=== PATIENT | female | born 2005 | race Caucasian/White ===

== ENCOUNTER 2025-03-26 13:10 | Inpatient (IN) | payer OTHER, SELFPAY ==
[2025-03-26] VITALS (11 sets, daily range): BP systolic 113–149; BP diastolic 48–73; PULSE 79–114; RESP 14–24; TEMP 36.4–37.1; O2SAT 96–100; BMI 31.4
--- NOTE | ~2025-03-26 | XR_ITS ---
XR surgery orthopedic INDICATION: ORIF COMPARISON: None Cumulative air kerma: 1.4479 mGy Fluoroscopy time:29.4 seconds FINDINGS: Fluoroscopy provided for plate and screw fixation of the distal fibular fracture and screw fixation of the medial malleolus. Sequential spot intraoperative fluoroscopic images demonstrate lateral plate and screw fixation of distal fibular fracture. There are surgical screws through the medial malleolus.. IMPRESSION: Please see operative report for further details. Reviewed, dictated and finalized at location [facility] [employer]
--- NOTE | ~2025-03-26 | XR_ITS ---
XR ankle RT min 3V 03/26/2025 13:34 Indication: Status post fall. Ankle pain. Procedure: 3 views right ankle Comparison: No prior studies for comparison. Findings: There are fractures of the distal fibular diaphysis with lateral displacement, medial malleolus with displacement as well as the posterior malleolus. There is moderate diffuse ankle swelling. No foreign bodies. Impression: 1: Displaced trimalleolar fractures. Reviewed, dictated and finalized at location I. R COACH DRIVER Impression: 1: Displaced trimalleolar fractures.
--- NOTE | 2025-03-26 13:30 | PC.NURSE ---
This RN asked TREY Cueva for pain medicine for pt. No new orders at this time.
--- NOTE | 2025-03-26 15:09 | ED_ITS ---
HPI - General Adult General Chief complaint: Fall <SABI Butler - Last Filed: 03/26/25 19:28> Stated complaint: fall, R ankle pain <SABI Butler - Last Filed: 03/26/25 19:28> Time Seen by Provider: 03/26/25 13:27 <SABI Butler - Last Filed: 03/26/25 19:28> History of Present Illness HPI narrative: 19-year-old female presenting with right ankle injury after slipping on ice. Patient's right ankle and foot is significantly swollen without an obvious deformity and mild bruising. She reports minor numbness/tingling on the bottom of her foot. No other injuries noted, she did not hit her head. Neurovascular intact. <SABI Butler - Last Filed: 03/26/25 19:28> Related Data Allergies/adverse reactions: Allergies Allergy/AdvReac Type Severity Reaction Status Date / Time No Known Allergies Allergy Verified 03/26/25 22:05 <SABI Butler - Last Filed: 03/26/25 19:28> Review of Systems Review of Systems: All systems reviewed & are unremarkable except as noted in HPI and below <SABI Butler - Last Filed: 03/26/25 19:28> PMFSH Past Medical History Medical History: Medical History Ankle syndesmosis disruption Fracture of ankle, trimalleolar, right, closed <SABI Butler - Last Filed: 03/26/25 19:28> Family History Family History: Family History (Updated 03/26/25 @ 22:22 by Mary Mata RN) Father Hypertension <SABI Butler - Last Filed: 03/26/25 19:28> Social History Social History: Social History Smoking status: Never smoker Second hand tobacco smoke exposure: Yes (Father is a smoker) Alcohol intake: current Substance use: never Lack of Transportation: No Lack of Food: Never True Current Housing: I Have Housing Concerned About Future Housing: No Difficulty Paying Gas/Electric Bills: No Difficulty Paying for Meds: No Currently Unemployed: No Education: High School Diploma/GED Difficulty w/ Childcare or Family Care: No Spiritual care concerns: No <SABI Butler - Last Filed: 03/26/25 19:28> Exam Narrative: GENERAL: Mild acute distress. Tearful. HEAD: Normocephalic, atraumatic. EYES: PERRLA and EOMI. ENT: Nares clear, no rhinorrhea or epistaxis. Mucous membranes moist. Oropharynx without tonsillar hypertrophy exudate or other lesions. Bilateral TMs pearly terrazas non-bulging NECK: Supple. No adenopathy or masses. No carotid bruits or JVD CHEST: Clear to auscultation. No respiratory distress. No wheezes rales or rhonchi HEART: Regular rate and rhythm. No murmur heard. Normal peripheral pulses. ABDOMEN: Soft, nontender, nondistended, normal active bowel sounds. EXTREMITIES: Right ankle significant edema. Mild ecchymosis. Limited ROM and strength due to pain. SKIN: Warm, dry, no rash. NEURO: No focal deficits. Alert and oriented x3. PSYCH: Normal mood and affect <SABI Butler - Last Filed: 03/26/25 19:28> Course ED CASE MANAGER/PA Physician Supervision This visit was performed by both a physician and an APC; I performed all aspects of the medical decision making component of this evaluation as documented. <Nataly Winn MD - Last Filed: 03/27/25 08:29> Vital Signs Vital signs: Vital Signs Temperature 98.3 F 03/26/25 13:14 Pulse Rate 86 03/26/25 13:14 Respiratory Rate 16 03/26/25 13:14 Blood Pressure 139/55 L 03/26/25 13:14 Pulse Oximetry 100 03/26/25 13:14 Oxygen Delivery Room Air 03/26/25 13:14 Temperature 97.7 F 03/27/25 04:30 Pulse Rate 68 03/27/25 04:30 Respiratory Rate 20 03/27/25 04:30 Blood Pressure 113/58 L 03/27/25 04:30 Pulse Oximetry 100 03/27/25 04:30 Oxygen Delivery Room Air 03/26/25 20:00 Oxygen Flow Rate 8 03/26/25 19:10 <SABI Butler - Last Filed: 03/26/25 19:28> Vital Signs Temperature 98.3 F 03/26/25 13:14 Pulse Rate 86 03/26/25 13:14 Respiratory Rate 16 03/26/25 13:14 Blood Pressure 139/55 L 03/26/25 13:14 Pulse Oximetry 100 03/26/25 13:14 Oxygen Delivery Room Air 03/26/25 13:14 Temperature 97.7 F 03/27/25 04:30 Pulse Rate 68 03/27/25 04:30 Respiratory Rate 20 03/27/25 04:30 Blood Pressure 113/58 L 03/27/25 04:30 Pulse Oximetry 100 03/27/25 04:30 Oxygen Delivery Room Air 03/26/25 20:00 Oxygen Flow Rate 8 03/26/25 19:10 <Nataly Winn MD - Last Filed: 03/27/25 08:29> [facility] Narrative Medical decision making narrative: 19-year-old female presenting with right ankle injury after slipping on ice. Patient's right ankle and foot is significantly swollen without an obvious deformity and mild bruising. She reports minor numbness/tingling on the bottom of her foot. No other injuries noted, she did not hit her head. Neurovascular intact. Imaging demonstrated displaced trimalleolar fractures. Administered morphine and Zofran which improved the patient's symptoms. Discussed with Dr. Guzman patient presentation and workup. Agrees with admission at this time. Splint was not placed as patient was sent to surgery. Spoke with Ishan Emmanuel ED CASE MANAGER with hospitalist who further agreed with admission. Patient remained comfortable and stable. <SABI Butler - Last Filed: 03/26/25 19:28> Differential Diagnosis Differential Diagnosis: Ankle sprain, ankle strain, ankle dislocation <SABI Butler - Last Filed: 03/26/25 19:28> Medical Records I have reviewed the following patient records and this information was taken into consideration when formulating the assessment and plan.: previous labs and previous ER visits <SABI Butler - Last Filed: 03/26/25 19:28> Lab Data [facility] Lab Attestation statement: I personally reviewed the patient's lab results. <SABI Butler - Last Filed: 03/26/25 19:28> Imaging Data Radiologist's impression: ITS Impressions Ankle X-Ray 03/26/25 14:02 Impression: 1: Displaced trimalleolar fractures. Intraoperative X-Ray 03/26/25 19:55 IMPRESSION: Please see operative report for further details. <SABI Butler - Last Filed: 03/26/25 19:28> ITS Impressions Ankle X-Ray 03/26/25 14:02 Impression: 1: Displaced trimalleolar fractures. Intraoperative X-Ray 03/26/25 19:55 IMPRESSION: Please see operative report for further details. <Nataly Winn MD - Last Filed: 03/27/25 08:29> Discharge Plan Discharge Clinical Impression: Fracture of ankle, trimalleolar, right, closed Qualifiers: Encounter type: initial encounter Qualified Code(s): S82.851A - Displaced trimalleolar fracture of right lower leg, initial encounter for closed fracture <SABI Butler - Last Filed: 03/26/25 19:28> Patient Disposition: Still a Patient <SABI Butler - Last Filed: 03/26/25 19:28> Condition: Stable <SABI Butler - Last Filed: 03/26/25 19:28>
[2025-03-26] MEDS: MORPHINE SULFATE (*CRX) 4 MG/ML INJ IV PUSH (15:13)
[2025-03-26] MEDS: ONDANSETRON INJ 4 MG/2 ML VIAL IV PUSH ×2 (15:13→19:20)
--- OUTSIDE RECORDS SUMMARY | 2025-03-26 15:22 | XMS_ITS | Clinical Summary ---
Author Organization [facility] Address [address] [place] [id number] Care Team Providers Care Php Mysql Web Developer Name Role Phone Deborah Lovett MD Primary Care Provider [phone] Medications No known medications Immunizations Immunization Administration Dates Next Due COVID Pfizer 12Y+ (Requires Dilution) 12/07/2020 ,11/11/2020 Social History Tobacco Use Types Packs/Day Years Used Date Smoking Tobacco: Never Smokeless Tobacco: Never Tobacco Cessation:Counseling Given: Not Answered Alcohol Use Standard Drinks/Week Comments Never 0 (1 standard drink = 0.6 oz pur e alcohol) Inadequate Housing Answer Date Recorded Social Determinants: Housing (Overall Score Help er) 0 07/01/2022 Sexually Active Control Partners Comments Never None Comments No Sex and Gender Information Value Date Recorded Sex Assigned at Not on file Legal Sex Female 2:29 PM CDT Gender Identity Not on file Sexual Orientation Not on file Obstetrics History Last Filed Vital Signs Vital Sign Reading Time Taken Comments Blood Pressure 129/72 08/17/2023 5:30 PM CDT Pulse 80 08/17/2023 5:30 PM CDT Temperature 37.2 C (99 F) 08/17/2023 5:30 PM CDT Respiratory Rate 18 08/17/2023 5:30 PM CDT Oxygen Saturation 97% 08/17/2023 5:30 PM CDT Inhaled Oxygen Concentration - - Weight 80.3 kg (177 lb 0.5 oz) 08/17/2023 5:30 P M CDT Height 166.4 cm (5' 5.5) 08/17/2023 5:30 PM CDT Body Mass Index 29.01 08/17/2023 5:30 PM CDT Plan of Treatment Health Maintenance Due Date Last Done Comments Well Child Visit (ages 3 - 21) 2007 Depression Screening 2016 Varicella Vaccine (1 of 2 - 13+ 2-dose series) 2017 Chlamydia and Gonorrhea Screening 2020 DTaP/Tdap/Td Vaccine (1 - Tdap) 2023 Hepatitis B Vaccine (1 of 3 - 19+ 3-dose series) 2023 COVID-19 Vaccine (3 - 2024-2 6 season) 2024 12/07/2020, 11/11/2020 Influenza Vaccine (#1) 2024 Hepatitis A Vaccine Completed 11/08/2020, 11/13/2019 Meningococcal Vaccine Completed 11/08/2020 Meningococcal Serogroup B Vaccine Completed 11/30/2022, 10/29/2021 HPV Vaccine Completed 09/08/2023, 05/10/2023, 11/30/2022 Pneumococcal Vaccine 0-49 Aged Out No longer eligible based on patient's age to complete this topic Insurance Care Teams Php Mysql Web Developer Relationship Specialty Start Date End Date Deborah Lovett MD PCP - General 01/18/20
--- OUTSIDE RECORDS SUMMARY | 2025-03-26 15:22 | XMS_ITS | Clinical Summary ---
Author Organization [facility] Address [address] [place] [address] Care Team Providers Care Laser Printing Operator Name Role Phone Deborah Lovett MD Primary Care Provider [phone] Social History Tobacco Use Types Packs/Day Years Used Date Smoking Tobacco: Never Tobacco Cessation:Counseling Given: Not Answered Comments Unknown Sex and Gender Information Value Date Recorded Sex Assigned at Not on file Legal Sex Female 9:31 AM CDT Gender Identity Female 08/03/2022 10:59 AM CDT Sexual Orientation Not on file Last Filed Vital Signs Vital Sign Reading Time Taken Comments Blood Pressure - - Pulse - - Temperature 36.9 C (98.4 F) 09/30/2022 3:40 PM CDT Respiratory Rate - - Oxygen Saturation - - Inhaled Oxygen Concentration - - Weight 68.6 kg (151 lb 3.8 oz) 09/30/2022 3:40 P M CDT Height 165.5 cm (5' 5.16) 09/30/2022 3:40 PM CD T Body Mass Index 25.05 09/30/2022 3:40 PM CDT Plan of Treatment Health Maintenance Due Date Last Done Comments COVID-19 VACCINE ( season) 2024 12/07/2020, 11/11/2020 RSV Aged Out No longer eligi ble based on patient's age to complete this topic Insurance [employer]/SELECT/EPO Member Subscriber Plan / Payer (Ef fective 2022-Present) Name:Lisset Connors Relation to Subscriber:Child Name:POONAM CONNORS Date of :1970 (Home) Address: [address] [place] [address] Payer ID:[id number] (NAIC) Type:PPO/POS Address: [place] [id number] [employer]/SELECT/EPO GENERIC COMMERCIAL Care Teams Laser Printing Operator Relationship Specialty Start Date End Date Deborah Lovett MD PCP - General CHITRA 07/23/22
--- OUTSIDE RECORDS SUMMARY | 2025-03-26 15:22 | XMS_ITS | Encounter Summary ---
Author Organization [facility] Address [address] [place] [address] Care Team Providers Care Neon Tube Pumper Name Role Phone Unavailable Primary Care Provider Unavailabl e Source Comments In the event that this information is protected by federal Confidentiality ofSubstance Use DisorderPatient Records, 42 CFR Part 2 prohibits theunauthorized disclosure of these records.[facility] Reason for Visit * Reason Comments Appointment Encounter Details Date Type Department Care Team (Late st Contact Info) Description 07/05/2024 Telephone [place] Neurology [id number] [place], [place] [id number] Teresa Howard MD [address] [id number] Appointment Social History Tobacco Use Types Packs/Day Years Used Date Smoking Tobacco: Never Assessed Comments Unknown Sex and Gender Information Value Date Recorded Sex Assigned at Not on file Legal Sex Female 8:58 AM INTERVENTIONAL PAIN PHYSICIAN Gender Identity Not on file Sexual Orientation Not on file documented as of this encounter Miscellaneous Notes * Telephone Encounter - Smooth Klein - 07/05/2024 1:31 PM CDT LVM informing patient that their appointment with Dr. Howard on 10/30/[address] Howard will be out of the office. Please assist patient with rescheduling their appointment to the next available in-person or virtual visit. Note for admin: okay per MD to use blocked/urgent slot if needed for rescheduling. documented in this encounter Plan of Treatment Not on file documented as of this encounter Visit Diagnoses Not on filedocumented in this encounter
--- OUTSIDE RECORDS SUMMARY | 2025-03-26 15:22 | XMS_ITS | Clinical Summary ---
Author Organization [facility] Address [address] [place] [address] Care Team Providers Care Plumber Supervisor Name Role Phone Unavailable Primary Care Provider Unavailabl e Source Comments In the event that this is information that is protected by federal Confidentiality of Substance UseDisorder Patient Records, 42 CFR Part 2 prohibits the unauthorized disclosure of these records.[facility] Allergies No known active allergies Medications rizatriptan 10 mg tablet 1 po prn migraine, may repeat x 1 in 2 hours prn. NTE 2 tabs in 24 hours. 12 tablet 11 11/01/2023 Active Social History Tobacco Use Types Packs/Day Years Used Date Smoking Tobacco: Never Assessed Comments Unknown Sex and Gender Information Value Date Recorded Sex Assigned at Not on file Legal Sex Female 8:58 AM PHARMACY GRAD INTERN Gender Identity Not on file Sexual Orientation Not on file Last Filed Vital Signs Vital Sign Reading Time Taken Comments Blood Pressure 132/75 11/01/2023 8:37 AM CDT Pulse 81 11/01/2023 8:37 AM CDT Temperature - - Respiratory Rate - - Oxygen Saturation 98% 11/01/2023 8:37 AM CDT Inhaled Oxygen Concentration - - Weight 85.2 kg (187 lb 11.6 oz) 11/01/2023 8:37 AM CDT Height 165.1 cm (5' 5) 11/01/2023 8:37 AM CDT Body Mass Index 31.24 11/01/2023 8:37 AM CDT Plan of Treatment Health Maintenance Due Date Last Done Comments Annual Well Visit (4-21 y/o) 2008 HIV SCREENING 2019 Chlamydia Screening-Yearly 2020 Gonorrhea Screening-Yearly 2020 Diabetes Screening 2022 HEPATITIS C SCREENING 2022 LIPID TESTING 2022 DTAP/TDAP/TD (1 - Tdap) 2023 COVID-19 VACCINE (3 - 2024-2 6 season) 2024 12/07/2020, 11/11/2020 INFLUENZA (#1) 2024 MENINGOCOCCAL CONJUGATE (MCV4) Completed 11/08/2020 MENINGOCOCCAL B (MENB) Completed , 10/29/2021 HPV Completed 09/08/2023, 05/10/2023, 11/30/2022 Pneumococcal 0-49 Aged Out No longer eligible based on patient's age to complete this topic [place] [address] [place] [address] SELECT/CHOICE PLUS/EPO/POS
--- NOTE | 2025-03-26 15:26 | PM.IMHP2 ---
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 Injury to right ankle. Presented to the emergency room and found to have right ankle fracture. Due to pain and displacement with instability of the fracture, she is being admitted for further care. Review of Systems Constitutional: Constitutional: Denies fever(s) Eyes: Eyes: Denies blurry vision ENT: Reports Normal hearing present Cardiovascular: Cardiovascular: Denies chest pain and Denies dyspnea Respiratory: Respiratory: Denies dyspnea and Denies wheezing Gastrointestinal: Gastrointestinal: Denies abdominal pain Genitourinary: Genitourinary: Denies urinary urgency Musculoskeletal: Musculoskeletal: Reports as per HPI and Denies numbness Integumentary/Breasts: Skin/Breast: Denies changing lesions and Denies sores Neurologic: Reports Normal hearing present, Denies behavioral changes, Denies confusion, Denies numbness and Denies convulsions Psychiatric: Psychiatric: Denies behavioral changes, Denies confusion and Denies hallucinations Endocrine: Endocrine: Denies heat intolerance Hematologic/Lymphatic: Hematologic/Lymphatic: Denies easy bleeding Allergic/Immunologic: Allergic/Immunologic: Denies wheezing PMFSH Past Medical History Medical History (Updated 03/26/25 @ 15:30 by Nikita Guzman MD) Ankle syndesmosis disruption Fracture of ankle, trimalleolar, right, closed Meds Home Medications and Allergies Allergies Allergy/AdvReac Type Severity Reaction Status Date / Time No Known Allergies Allergy Verified 03/26/25 15:36 Vital Signs Vital Signs - 24 hr 03/26/25 13:14 Temperature 98.3 F Pulse Rate 86 Respiratory Rate 16 Blood Pressure 139/55 L Pulse Oximetry 100 Oxygen Delivery Room Air Exam Const: General: No confusion Orientation/consciousness: patient oriented x3 and No confusion HENMT: Head: normal to inspection, normocephalic and atraumatic Eyes: Conjunctivae: conjunctivae normal Sclera: sclerae normal Neck: Neck: supple and nontender Chest: Chest palpation & inspection: normal inspection of the chest Resp: Effort & Inspection: normal respiratory effort and no audible wheezes Cardio: Rate: regular rate Rhythm: regular rhythm : General: Yes deferred Skin: General skin exam: no rashes or lesions noted Neuro: General: patient oriented x3 and No confusion Extrem: General: capillary refill normal Right upper extremity: normal to inspection Left upper extremity: normal to inspection Right lower extremity: hip/thigh Details: no tenderness, knee Details: abnormal ROM ( Knee range of motion deferred secondary to fracture); no tenderness and no swelling, ankle Details: tenderness Location: of the lateral malleolus and anteromedially, swelling ( moderate) Details: laterally and medially, abnormal ROM Details: pain with active ROM and ecchymosis ( moderate diffusely ankle) and foot Details: vascular exam Details: dorsalis pedis pulse present and normal capillary refill, tendon exam (intact, able to flex and extend toes) and motor-sensory exam Details: light-touch normal Location: in all toes Left lower extremity: normal to inspection, hip/thigh Details: normal to inspection, knee Details: normal to inspection, ankle Details: normal to inspection and normal ROM ( Active flexion and extension intact); no tenderness and no swelling and foot Details: vascular exam Details: dorsalis pedis pulse present and normal capillary refill, tendon exam active flexion normal and active flexion abnormal and motor-sensory exam light-touch normal; no tenderness Psych: Affect: normal affect Results Imaging ankle x-ray: Attestation: I personally reviewed this imaging study My impression: right ankle radiographs show trimalleolar fracture with displacement. Evidence of disruption of the syndesmosis. Posterior malleolus with comminuted fracture. Assessment and Plan Assessment and plan (1) Fracture of ankle, trimalleolar, right, closed: Qualifiers: Encounter type: initial encounter Qualified Code(s): S82.851A - Displaced trimalleolar fracture of right lower leg, initial encounter for closed fracture Code(s): S82.851A - Displaced trimalleolar fracture of right lower leg, initial encounter for closed fracture Status: Acute Assessment and Plan: New patient evaluation for chief complaint Fall with right ankle fracture. History, physical exam and radiographs reviewed with the patient. Right ankle trimalleolar and syndesmosis disruption with displacement. Discussed the condition, nature, etiology and course of natural history with the patient. Treatment options including surgical and nonoperative treatment were reviewed. Risks and benefits of each as well as alternatives reviewed. The patient's questions were answered. Conservative treatment with immobilization, ice, compression and elevation. Reviewed with patient the fracture pattern with instability of the ankle joint and displacement. patient desires operative treatment. (2) Ankle syndesmosis disruption: Qualifiers: Encounter type: initial encounter Laterality: right Qualified Code(s): S93.431A - Sprain of tibiofibular ligament of right ankle, initial encounter Code(s): S93.439A - Sprain of tibiofibular ligament of unspecified ankle, initial encounter Status: Acute Plan Discussed nonoperative and operative treatment options with the patient. Risks and benefits of each as well as alternatives were reviewed. All of the patient's questions were answered. The risks of surgery reviewed including but not limited to: Neurovascular damage, wound complication, infection, blood clot, pulmonary embolus, stroke, myocardial infarction, and anesthetic risks up to and including . Continued pain and possible dysfunction were explained. Specific risks of the procedure including later recurrence of deformity. No guarantees were offered. If hardware used, discussed risk of failure/ breakage and possible need for removal. If complications occur, the patient understands the need for further treatment, possible further surgery. Patient verbalizes understanding and wishes to proceed. PLAN: Open reduction internal fixation right ankle fracture.
--- NOTE | 2025-03-26 16:30 | WPDHPUPDATE1 ---
History and Physical Update Update Date/Time: 03/26/25 16:30 History and Physical has been reviewed, including an updated exam of the patient. There are NO changes in the patient's condition. Risks, benefits, and alternatives have been discussed and questions answered. Patient agrees to proceed with procedure.
[2025-03-26] MEDS: ACETAMINOPHEN 500 MG TABLET 1000 MG PO (16:31)
[2025-03-26] MEDS: KETOROLAC 15 MG/ML VIAL (*BKC) IV PUSH (16:34)
--- NOTE | 2025-03-26 17:01 | P.PNAN_ITS ---
Anes - Initial Pre Proc Eval Procedure: Operation Date: 03/26/25 16:30 Proposed Procedures p Open Reduction Internal Fixation Right Ankle - Nikita Guzman MD Date/Time: 03/26/25 17:01 Pre Op Diagnosis: fall, R ankle pain Patient Data Age: 19 Gender: F Height: 1.7 m Weight: 90.9 kg Last Vital Signs Temp 98.1 F 03/26/25 15:57 Pulse 108 H 03/26/25 15:57 Resp 18 03/26/25 15:57 BP 149/73 H 03/26/25 15:57 Pulse Ox 99 03/26/25 15:57 O2 Del Method Room Air 03/26/25 15:57 Allergies Allergy/AdvReac Type Severity Reaction Status Date / Time No Known Allergies Allergy Verified 03/26/25 16:52 Home Medications ?Medication ?Instructions ?Recorded ?Confirmed ?Type No Home Medications 03/26/25 03/26/25 H istory Patient hx anesthesia problems: none Family hx anesthesia problems: none Results Review: All pre-operative results and documents have been reviewed as part of the pre- operative evaluation. [facility] Past Medical History Medical History Ankle syndesmosis disruption Fracture of ankle, trimalleolar, right, closed Anes - Eval Final PreProcedure Day of Procedure 03/26/25 17:01 Patient weight: obese Lungs: normal air movement Airway: Mallampati scale class II Neurological: alert and oriented Last oral intake: >/= 8 hours ASA classification: II Emergent: no Anesthetic plan: proceed Anesthesia type and monitoring: general LMA and standard monitoring Results Review: All pre-operative results and documents have been reviewed as part of the pre- operative evaluation. BMI 31, active overall w gym, wts and cardio, no cp or sob. Informed Consent: The patient's anesthetic plan and its attendant risks and benefits were discussed with the patient/family/POA. Questions were solicited and answers provided to the satisfaction of the patient/family/POA.
[2025-03-26] MEDS: ceFAZolin 2 GM in SODIUM CHLORIDE 0.9% IV 50 ML 100 ML IVPB (17:09)
[2025-03-26] MEDS: BUPIVACAINE/EPINEPHRINE 0.5% 50 ML VIAL 30 ML INFILTRATE (17:40)
[2025-03-26] MEDS: LACTATED RINGERS 1,000 ML 30 ML IV CONT ×2 (18:57)
--- NOTE | 2025-03-26 19:20 | W.PM.PROC2 ---
Procedure Note - Detailed Date of Procedure 03/26/25 Pre-op Diagnosis Trimalleolar fracture With syndesmosis disruption right ankle Post-op Diagnosis Same Procedure Performed open reduction internal fixation right ankle trimalleolar fracture without fixation posterior, open reduction internal fixation syndesmosis. Surgeon Nikita Guzman MD Developmental Mathematics Professor 1St assist Anesthesia General Indications 19-year-old woman who fell and sustained right ankle Trimalleolar fracture with disruption of the syndesmosis. Presents for operative treatment. Findings incarcerated fragment posterior malleolus with articular surface. Partial disruption distal tib-fib syndesmosis. Description of Procedure After informed consent, the operative extremity was marked in the preoperative holding area. Patient received intravenous antibiotics. Patient was then taken to the operating room and underwent general anesthesia by the anesthesia team. Positioned supine on the operating room table with a soft bump under the ipsilateral hip. A time-out was performed confirming the patient, site of the surgery, operative plan. Right Lower extremity then prepped and draped in the usual sterile surgical fashion using ChloraPrep skin solution. right Foot and ankle exsanguinated and a thigh tourniquet inflated to 250 mmHg. Longitudinal incision made over the lateral ankle distal fibula with a 15 blade knife. Hemostasis controlled with electrocautery. Full-thickness soft tissue flaps developed and the fascia was incised in line with the skin incision. care was taken to isolate and protect the neuro sensory structures. Fracture identified and cleared with a dental pick, irrigation and rongeur. Fracture reduced and held with bone-holding clamp. Image intensification confirmed reduction of the fracture and the ankle mortise. Fixation achieved with a Neutralization System with a lateral plate with combination screws distal to fracture and bicortical screws proximal to the fracture. Good alignment and stability of the fracture noted. Image intensification used to confirm reduction of the fracture and placement of the hardware. tibia fibular syndesmosis noted to be unstable and disrupted. Dissection over the anterior fibula to isolate the syndesmosis and incisura. Retractors placed in the posterior malleolus was able to be visualized. The incarcerated fragment was able to be seen and removed with a rongeur. Thorough irrigation of the fracture with suction. When the fibula was allowed to reduce the posterior malleolus fracture was noted to be reduced. Syndesmosis fixation achieved with the fibula in the reduced position with tight rope fixation placed from lateral to medial with usual technique. Ankle in maximum dorsiflexion when tightening tight rope system performed. Image intensification confirmed alignment. Medial side then addressed. Longitudinal incision made with a 15 blade knife over the medial malleolus fracture. Hemostasis controlled with electrocautery. Fascia incised in line with skin incision. Periosteum cleared from the medial malleolus fracture. Medial side of the joint inspected and noted to have mild amount of trauma to the chondral surface. Thorough irrigation of the ankle joint and suctioned out. Fracture reduced and provisionally pinned. Fixation achieved with 4.0 mm partially threaded cancellous screws x2 placed in cannulated screw fashion. Image intensification confirmed reduction of the fracture and placement of the hardware. Stress of the ankle performed with good stability of the ankle mortise in all directions. Posterior malleolus noted to be reduced and stable. Wounds thoroughly irrigated with antibiotic solution. Fascia repaired with 00 Vicryl interrupted suture. Subcutaneous tissue repaired with 000 Monocryl interrupted suture and Skin approximated with katelynn. Sterile dressings applied followed by bulky dressing and splint. Patient awoken from anesthesia, extubated and taken to the recovery room in stable condition. All sponge, needle and instrument counts correct at the end of the case. Palpable dorsalis pedis pulse noted prior to dressing. Implants Arthrex distal fibula plate with combination bicortical and locking screws. 4.0 mm cannulated screw x2. Syndesmosis tight rope system x2. Estimated Blood Loss 20 Tourniquet Time Total Tourniquet Time: 90 Drains No Packing No Pathology None sent Complications None Condition Stable Disposition PACU [facility] Billing Surgery - Charge Forward: Surgery Billing ([id number], [id number])
[2025-03-26] MEDS: fentaNYL CITRATE INJ (*CRX) 100 MCG/2 ML VIAL 25 MCG IV PUSH (19:32)
--- NOTE | 2025-03-26 20:28 | ADMGEN ---
This patient, Lisset Connors, was admitted to 3 Med Surg Room 311-01. Patient/family oriented to hospital policies and general routines including ID bracelet, bed and alarms, visiting hours, pain management, procedures, bathroom and other care routines, personal items, smoking policy, room service/diet, and visiting hours. Information on how to activate the Rapid Response Team has been discussed. Patient/Family are encouraged to report perceived risks to care and to ask questions if they do not understand what they are told or what they should do.
[2025-03-26] MEDS: MORPHINE SULFATE (*CRX) 4 MG/ML INJ 3 MG IV PUSH (21:17)
[2025-03-27] MEDS: ceFAZolin 1 GM in SODIUM CHLORIDE 0.9% IV 50 ML 100 ML IVPB ×2 (00:48→08:16)
[2025-03-27] MEDS: MORPHINE SULFATE (*CRX) 4 MG/ML INJ 3 MG IV PUSH (01:16)
[2025-03-27 04:30] VITALS: BP 113/58; PULSE 68; RESP 20; TEMP 36.5; O2SAT 100
--- NOTE | 2025-03-27 07:22 | WPDANESPN ---
Anes - Prog Note Post-Op Date/Time: 03/27/25 07:22 Cardiovascular status: normal Respiratory status: normal Airway patency: baseline Mental status: baseline Post-Op hydration status: normal Vital Signs: Last Vital Signs Temp 36.5 C 03/27/25 04:30 Pulse 68 03/27/25 04:30 Resp 20 03/27/25 04:30 BP 113/58 L 03/27/25 04:30 Pulse Ox 100 03/27/25 04:30 O2 Del Method Room Air 03/26/25 20:00 O2 Flow Rate 8 03/26/25 19:10 Pain Score (VAS): 3 I/O: Intake & Output 03/26/25 03/26/25 03/27/25 15:59 23:59 07:59 Intake Total 0 250 Balance 0 250 Post-procedural complaints: none Patient Feedback: Patient satisfied with anesthetic care.
--- NOTE | 2025-03-27 08:01 | P.DS_ITS ---
DS: Admitting Diagnosis Discharge Date 03/27/2025 Admitting Diagnosis right ankle fracture DS: Discharge Diagnosis Discharge Diagnosis (1) Fracture of ankle, trimalleolar, right, closed: Qualifiers: Encounter type: initial encounter Qualified Code(s): S82.851A - Displaced trimalleolar fracture of right lower leg, initial encounter for closed fracture Code(s): S82.851A - Displaced trimalleolar fracture of right lower leg, initial encounter for closed fracture Status: Acute Assessment and Plan: status post open reduction internal fixation right ankle fracture and synd esmosis disruption. Postoperative day 1. Patient awake and alert. Pain well controlled. Some decreased sensation in the hallux secondary to nerve block. Splint in place. Plan for PT/OT today with nonweightbearing, crutches or walker. Edema control, pain control DVT prophylaxis with SCDs and aspirin. Plan discharge home if passes therapy and pain controlled. (2) Ankle syndesmosis disruption: Qualifiers: Encounter type: initial encounter Laterality: right Qualified Code(s): S93.431A - Sprain of tibiofibular ligament of right ankle, initial encounter Code(s): S93.439A - Sprain of tibiofibular ligament of unspecified ankle, initial encounter Status: Acute DS: Summary Hospital Course Reason for hospitalization: Slip and fall with right ankle fracture and syndesmosis disruption. Hospital Course: Taken to the operating room on March 26 for open reduction internal fixation. Admitted postoperatively. Stable overnight. Pain controlled, tolerating diet. Splint in place. PT/OT with nonweightbearing. Crutches for ambulation. Cleared for discharge home. Status at Discharge Cognitive/behavioral status at discharge: Alert and oriented x3 Functional status at discharge: uses cane/walker Overall status at discharge: patient is not back to baseline Time Spent with Patient Time attestation: Total time spent providing and/or coordinating discharge services: Exam Const: General: healthy appearing; No in distress or confusion Orientation/consciousness: patient oriented x3 and No confusion HENMT: Head: normal to inspection, normocephalic and atraumatic Eyes: Conjunctivae: conjunctivae normal Sclera: sclerae normal Resp: Effort & Inspection: normal respiratory effort and no audible wheezes Neuro: General: patient oriented x3 and No confusion Extrem: Right upper extremity: normal to inspection Left upper extremity: normal to inspection Right lower extremity: lower leg Details: other ( Negative Homans) and foot Details: normal capillary refill, vascular exam Details: dorsalis pedis pulse present and normal capillary refill, tendon exam Details: active flexion normal and active extension normal and other ( splint in place, clean and dry. Moves toes. Good capillary refill. Decreased sensation to light touch hallux, otherwise intact.) Left lower extremity: lower leg Details: other ( negative Homans) and foot Details: normal capillary refill and vascular exam Details: dorsalis pedis pulse present, posterior tibial pulse present and normal capillary refill Psych: Affect: normal affect Discharge Plan Discharge Attending physician on discharge: Dylon Kelly Consulting providers: Papi Apple Discharging Clinician: Dylon Kelly Anticipated Discharge Date/Time: 03/27/25 13:00 Patient Disposition: Home Activity: follow weight bearing status Diet: regular Wound Care Instructions: follow printed instructions, keep dressing dry and other - see discharge instructions Discharge Instructions: DYLON KELLY M.D. [facility] [address] [place] [address] [address] [place] [id number] POST OPERATIVE DISCHARGE INSTRUCTIONS FOOT/ANKLE SURGERY * Elevate the involved extremity on pillows. * For the first 48 hours, make sure that the foot is above the level of your heart. * Carefully observe the exposed toes for evidence of swelling or discoloration. * If the dressing is uncomfortable or tight, call the Dr?s office. * Splint in place. Keep the dressing clean and dry. Remove dressing only as directed by doctor. * If the pain medication does not provide adequate relief, please call Dr?s office. * Take other medication as prescribed. * Please call Dr?s office to confirm follow-up appointment for 1 week. * If you have any questions, please call the Dr?s office. * Diet as tolerated. * Activity:___X____Restrictions as follows: no weight operative leg; crutches or walker for ambulation * Do not drive for 24 hours, unless otherwise instructed. * Additional instructions: Patient Instructions: Antibiotic Form Patient Language: Togolese Stand Alone Forms: General Discharge Information Follow-up/Referrals: Dylon Kelly MD [Physician, Orthopedics] - 1 Week Referral Note: Call office to confirm appointment for 1 week. Discharge Medications: New hydrocodone-acetaminophen 5-325 mg Tablet 1 tablet PO Q3H PRN (Reason: pain) Qty: 30 0RF diazepam 5 mg Tablet 5 mg PO Q8H PRN (Reason: Muscle Spasm) Qty: 20 1RF aspirin 325 mg Tablet,Delayed Release (Dr/Ec) 325 mg PO QAM Qty: 30 0RF polyethylene glycol 3350 [Miralax] 17 gram Powder In Packet 17 g PO QAM Qty: 14 1RF ibuprofen 800 mg tablet 800 mg PO TID PRN (Reason: pain) Qty: 30 1RF sennosides-docusate sodium [Senna with Docusate Sodium] 8.6-50 mg tablet 1 tab-cap PO BID PRN (Reason: constipation) Qty: 20 1RF acetaminophen 325 mg Tablet 650 mg PO Q6H PRN (Reason: Pain Rated 1-3 or fever) Qty: 30 0RF Date of admission: 03/26/25 18:55 Primary Care Provider: PHYSICIAN,EGG SETTER Admitting Provider: Dylon Kelly Attending physician on admission: Dylon Kelly Condition: Stable
[2025-03-27] MEDS: ASPIRIN 325 MG ENTERIC TABLET PO (08:23)
[2025-03-27] MEDS: HYDROcodone/acetaminophen (*CRX) 5-325 MG TABLET 1 TAB PO (10:10)
== END 2025-03-27 11:35 | disposition home or self-care (01) | DRG 494 ==
LOC: ANHED 16:17 → ANH3MEDSUR 18:14
PROVIDERS: Admitting Provider Orthopaedic Surgery; Visit Provider Orthopaedic Surgery
PROC: 0QSG04Z Reposition Right Tibia with Internal Fixation Device, Open Approach (ICD-10-PCS; principal; 2025-03-26 16:30)
DX: S82.851A Displaced trimalleolar fracture of right lower leg, initial encounter for closed fracture (principal); S93.431A Sprain of tibiofibular ligament of right ankle, initial encounter; W00.0XXA Fall on same level due to ice and snow, initial encounter
CPT/HCPCS: 73610; 96374; 96375; 97116; 97161; 97165; 99199; 99285; J0690; A9270; C1713; C1769; G0378; J1100; J1171; J1885; J2003; J2250; J2270; J2405; J2704; J3010; J7030; J7120

== ENCOUNTER 2025-03-29 06:12 | Emergency (ER) | payer OTHER, SELFPAY ==
[2025-03-29] VITALS (9 sets, daily range): BP systolic 117–143; BP diastolic 62–84; PULSE 70–98; RESP 14–20; TEMP 36.9; O2SAT 98–100
--- NOTE | ~2025-03-29 | CT_ITS ---
EXAMINATION: CTA chest PE protocol, 03/29/2025 9:15 BUSINESS INTELLIGENCE DEVELOPER HISTORY: +ddimer, CRISPIN/CP; rct ankle sgy COMPARISON: No comparisons available. TECHNIQUE: CTA examination is obtained with contrast CTA examination technique is performed with arterial phase of contrast-enhancement. 3-D reconstruction with thin MIP axial and MPR coronal imaging is provided Isovue 300, 92cc injected IV. One or more of the following dose reduction techniques were used: automated exposure control, adjustment of the mA and/or kV according to patient size, use of iterative reconstruction technique. FINDINGS: No significant coronary calcification is present ([id number]) LUNGS: Trace left pleural effusion. Contrast bolus is adequate, there is no pulmonary embolism identified. No tracheomalacia. No bronchiectasis. Minimal pulmonary venous congestion. There are no significant emphysematous or pulmonary fibrotic changes identified. HEART AND PERICARDIUM: Mild cardiomegaly. AORTA: Normal caliber aorta.. PULMONARY ARTERIES: No pulmonary embolism ADENOPATHY/MEDIASTINUM: None. LIMITED VIEWS OF THE ABDOMEN: Within normal limits. OSSEOUS STRUCTURES: No sclerotic or lytic lesions appreciated. OVERLYING SOFT TISSUES: Unremarkable. THYROID: The thyroid is unremarkable. IMPRESSION: 1. Negative for pulmonary embolism. Mild CHF Reviewed, dictated and finalized at location P. NESS INTELLIGENCE DEVELOPER
--- NOTE | ~2025-03-29 | XR_ITS ---
Examination: XR chest 2V Clinical History: chest pain left into left arm Comparison: None Technique: PA and Lateral Findings: Cardiomediastinal silhouette normal size and configuration. Lungs clear. No acute bony abnormality. IMPRESSION: 1. No acute cardiopulmonary findings. Reviewed, dictated and finalized at location R. Y MOTORMAN
--- OUTSIDE RECORDS SUMMARY | 2025-03-29 06:14 | XMS_ITS | Clinical Summary ---
Author Organization [facility] Address [address] [place] [address] Care Team Providers Care Sea Air Land Officer Name Role Phone Deborah Lovett MD Primary Care Provider Social History Tobacco Use Types Packs/Day Years [...] patient's age to complete this topic Insurance [facility] CHOICE PLUS/SELECT/EPO Member Subscriber Plan / Payer (Ef fective 2022-Present) Name:Lisset Connors Relation to Subscriber:Child Name:POONAM CONNORS Date of :1970 (Home) Address: [address] [place] [address] Payer ID:[id number] (NAIC) Type:PPO/POS Address: [place] [id number] [facility] CHOICE PLUS/SELECT/EPO GENERIC COMMERCIAL Care Teams Sea Air Land Officer Relationship Specialty Start Date End Date Deborah Lovett MD PCP - General CHITRA 07/23/22
--- OUTSIDE RECORDS SUMMARY | 2025-03-29 06:14 | XMS_ITS | Encounter Summary ---
Author Organization [facility] Address [address] [place] [address] Care Team Providers Care Irrigation Service Technician Name Role Phone Unavailable Primary Care Provider Unavailabl e Source Comments In the event that this information is protected by federal Confidentiality ofSubstance Use DisorderPatient Records, 42 CFR Part 2 prohibits theunauthorized disclosure of these records.[facility] Reason for Visit * Reason Comments Appointment Encounter Details Date Type Department Care Team (Late st Contact Info) Description 07/05/2024 Telephone [facility] [id number] [place], [place] [phone] Teresa Howard MD [address] [id number] Appointment Social History Tobacco Use Types Packs/Day Years Used Date Smoking Tobacco: Never Assessed Comments Unknown Sex and Gender Information Value Date Recorded Sex Assigned at Not on file Legal Sex Female 8:58 AM SENIOR C WEB DEVELOPER Gender Identity Not on file Sexual Orientation [...]
--- OUTSIDE RECORDS SUMMARY | 2025-03-29 06:14 | XMS_ITS | Clinical Summary ---
Author Organization [facility] Address [address] [place] [address] Care Team Providers Care Stab Setter And Driller Name Role Phone Unavailable Primary Care Provider Unavailabl e Source Comments In the event that this is information that is protected by federal Confidentiality of Substance UseDisorder Patient Records, 42 CFR Part 2 prohibits the unauthorized disclosure of these records.[facility] Allergies No known active allergies Medications rizatriptan [...] on file Legal Sex Female 8:58 AM BUSINESS ARCHITECT Gender Identity Not on file Sexual Orientation [...] patient's age to complete this topic Insurance [place] [address] SELECT/CHOICE PLUS/EPO/POS
--- OUTSIDE RECORDS SUMMARY | 2025-03-29 06:14 | XMS_ITS | Clinical Summary ---
Author Organization [facility] Address [address] [place] [id number] Care Team Providers Care Large Sheetfed Press Operator Name Role Phone Deborah Lovett MD Primary Care Provider [phone] Medications No known medications Immunizations Immunization Administration [...] to complete this topic Insurance Care Teams Large Sheetfed Press Operator Relationship Specialty Start Date End Date Deborah Lovett MD PCP - General 01/18/20
--- NOTE | 2025-03-29 06:17 | ECG_ITS ---
Test Date: 2025-03-29 06:20:44 Measurements Intervals [place] Rate: 107 P: 43 MS: 167 QRS: 8 QRSD: 81 T: 2 QT: 335 QTc: 449 Interpretive Statements SINUS TACHYCARDIA POSSIBLE ANTERIOR MYOCARDIAL INFARCTION , PROBABLY OLD BORDERLINE T WAVE ABNORMALITY- INFERIOR LEADS BASELINE ARTIFACT- II, III, AVR, AVL, AVF, V1, V3-V6 ABNORMAL ECG No previous ECG available for comparison Electronically Signed On 03-29-2025 07:53:31 [employer] by Daniel Drake D.O.
[2025-03-29] MEDS: ASPIRIN 81 MG CHEWABLE TABLET 324 MG PO (06:27)
[2025-03-29 06:29] LABS: Hematocrit 35.6 % (37.0-47.0); Hemoglobin 10.8 g/dL (12.0-15.0); Immature Granulocyte Percent A 0.4 % (0-0.5); Lymphocytes Absolute Auto 2.48 K/mm3 (0.9-3.2); Mean Corpuscular HGB Conc 30.3 g/dl (32-36); Mean Corpuscular Hemoglobin 25.0 pg (26-34); Mean Corpuscular Volume 82.4 fl (80-100); Nucleated Red Blood Cells Absolute Auto 0.000 K/mm3 (0.0-0.012); Nucleated Red Blood Cells Perc 0.0 % (0.0-0.2); Platelet Count Result 402 k/mm3 (150-375); Red Blood Count 4.32 M/mm3 (4.2-5.4); White Blood Count 10.3 K/mm3 (4.5-10.0)
[2025-03-29 06:40] LABS: INR 1.0; Prothrombin Time 12.9 Seconds (11.1-14.7)
[2025-03-29 06:41] LABS: Partial Thromboplastin Time 25.6 Seconds (22.3-36.8)
[2025-03-29 06:47] LABS: Alanine Aminotransferase 17 U/L (6-35); Albumin Level 4.1 g/dL (3.5-5.1); Alkaline Phosphatase 85 U/L (38-126); Anion Gap 6 mmol/L (4-12); Aspartate Amino Transferase 33 U/L (14-36); Bilirubin,Total 0.5 mg/dL (0.2-1.3); Blood Urea Nitrogen 10 mg/dL (7-17); Calcium 9.3 mg/dL (8.4-10.2); Carbon Dioxide 24 mmol/L (22-30); Chloride 109 mmol/L (98-107); Estimated CRCL calculation 122 ml/min; Estimated Glomerular Filt Rate > 60; Glucose 99 mg/dL (65-110); Lipase 41 U/L (23-300); Potassium 3.5 mmol/L (3.4-5.0); Sodium 139 mmol/L (137-145); Total Protein 7.6 g/dL (6.3-8.2)
[2025-03-29 06:53] LABS: Troponin I < 0.012 ng/mL (0.000-0.034)
--- NOTE | 2025-03-29 08:04 | ED.CHESTPAIN ---
HPI - Chest Pain General Chief Complaint: Chest Pain Stated Complaint: chest pain Time Seen by Provider: 03/29/25 07:00 History of Present Illness HPI narrative: 19F had ankle surgery 3 days ago this AM or last night started having chest pain and shortness of breath; she is concerned about PE. Related Data Allergies Allergy/AdvReac Type Severity Reaction Status Date / Time No Known Allergies Allergy Verified 03/26/25 22:05 Review of Systems Review of Systems: All systems reviewed & are unremarkable except as noted in HPI and below PMFSH Past Medical History Medical History Ankle syndesmosis disruption Fracture of ankle, trimalleolar, right, closed Family History Family History (Updated 03/26/25 @ 22:22 by Mary Mata RN) Father Hypertension Social History Social History Smoking status: Never smoker Second hand tobacco smoke exposure: Yes (Father is a smoker) Alcohol intake: current Substance use: never Lack of Transportation: No Lack of Food: Never True Current Housing: I Have Housing Concerned About Future Housing: No Difficulty Paying Gas/Electric Bills: No Difficulty Paying for Meds: No Currently Unemployed: No Education: High School Diploma/GED Difficulty w/ Childcare or Family Care: No Spiritual care concerns: No Exam Narrative: EXAMINATION OF ORGAN SYSTEMS/BODY AREAS: Constitutional: Vital signs per nursing GENERAL: Appears slightly anxious HEAD: Normal with no signs of head trauma. EYES: EOMI, conjunctiva normal ENT: Hearing grossly intact LUNGS: Nonlabored breathing. Clear to auscultation bilaterally HEART: [Regular rate and rhythm] ABD: [Soft], [nontender to palpation] EXT: Normal range of motion SKIN: [No rashes or lesions.] NEURO: [Alert. No gross focal sensory or strength deficits.] PSYCH: Anxious affect Course Vital Signs Vital signs: Vital Signs Temperature 98.4 F 03/29/25 06:17 Pulse Rate 98 03/29/25 06:17 Respiratory Rate 20 03/29/25 06:17 Blood Pressure 140/80 03/29/25 06:17 Pulse Oximetry 99 03/29/25 06:17 Oxygen Delivery Room Air 03/29/25 06:17 Temperature 98.4 F 03/29/25 06:17 Pulse Rate 84 03/29/25 09:48 Respiratory Rate 19 03/29/25 09:48 Blood Pressure 136/84 03/29/25 09:48 Pulse Oximetry 99 03/29/25 09:48 Oxygen Delivery Room Air 03/29/25 06:17 [facility] MDM Narrative Medical decision making narrative: Patient presenting with chest pain and shortness of breath, little bit since yesterday but worse today, initially was extremely anxious and hyperventilating, ankle is in splint, with good cap refill and normal sensorimotor function. She is concerned about a PE, D-dimer is elevated but CT PE is negative for PE, though per radiologist, possibly cardiomegaly and pulmonary vascular congestion. Two troponins were negative so I doubt cardiac abnormality or myocarditis. On re-evaluation she is very well-appearing, no distress, vital signs normal, I have discussed findings with her and follow-up to sensitized paper tester, patient along with return precautions. Patient agreeable to plan Differential Diagnosis Differential Diagnosis: Anxiety, pneumonia, PE, etc. Lab Data 03/29/25 06:24 03/29/25 06:24 Labs: Lab Results 03/29/25 03/29/25 03/29/25 Range/Units 06:24 09:10 09:12 WBC 10.3 H (4.5-10.0) K/mm3 RBC 4.32 (4.2-5.4) M/mm3 Hgb 10.8 L (12.0-15.0) g/dL Hct 35.6 L (37.0-47.0) % MCV 82.4 (80-100) fl MCH 25.0 L (26-34) pg MCHC 30.3 L (32-36) g/dl RDW 15.9 H (11.5-14.5) % Plt Count 402 H (150-375) k/mm3 MPV 8.7 (7.4-10.4) fl Immature Gran % (Auto) 0.4 (0-0.5) % Neut % (Auto) 64.8 (45.5-73.1) % Lymph % (Auto) 24.0 (18.3-44.2) % [place] % (Auto) 8.9 H (2.6-8.5) % Eos % (Auto) 1.5 (0-4.4) % Baso % (Auto) 0.4 (0.2-1.2) % Lymph # (Auto) 2.48 (0.9-3.2) K/mm3 [place] # (Auto) 0.9 H (0.1-0.6) K/mm3 Eos # (Auto) 0.2 (0-0.3) K/mm3 Baso # (Auto) 0.0 (0.0-0.1) K/mm3 Abs Immat Gran (auto) 0.04 H (0.00-0.031) K/mm3 Absolute Neuts (auto) 6.7 (1.3-6.7) K/mm3 Absolute Nucleated RBC 0.000 (0.0-0.012) K/mm3 Nucleated RBC % 0.0 (0.0-0.2) % PT 12.9 (11.1-14.7) Seconds INR 1.0 APTT 25.6 (22.3-36.8) Seconds D-Dimer 0.83 H (<0.48) ug/mL Sodium 139 (137-145) mmol/L Potassium 3.5 (3.4-5.0) mmol/L Chloride 109 H (98-107) mmol/L Carbon Dioxide 24 (22-30) mmol/L Anion Gap 6 (4-12) mmol/L BUN 10 (7-17) mg/dL Creatinine 0.76 (0.7-1.0) mg/dL Estim Creat Clear Calc 122 ml/min Estimated GFR > 60 (59 - ) Glucose 99 (65-110) mg/dL Calcium 9.3 (8.4-10.2) mg/dL Total Bilirubin 0.5 (0.2-1.3) mg/dL AST 33 (14-36) U/L ALT 17 (6-35) U/L Alkaline Phosphatase 85 (38-126) U/L Troponin I < 0.012 < 0.012 (0.000-0.034) ng/mL Total Protein 7.6 (6.3-8.2) g/dL Albumin 4.1 (3.5-5.1) g/dL Lipase 41 (23-300) U/L POC Urine HCG, Qual Negative (Negative) Imaging Data Radiologist's impression: ITS Impressions Chest X-Ray 03/29/25 06:57 IMPRESSION: 1. No acute cardiopulmonary findings. Chest CTA 03/29/25 09:38 IMPRESSION: 1. Negative for pulmonary embolism. Mild CHF Discharge Plan Discharge Clinical Impression: Shortness of breath Patient Disposition: Home Condition: Stable Instructions: Shortness of Breath (ED) Additional Instructions: Your CT thankfully does not show any blood clots. Your heart enzymes have been negative. Your heart size maybe a little bit bigger than normal, please follow-up with the sensitized paper tester for further evaluation; if your symptoms return or worsen, please come back to the ER. Patient Language: Mexican Prescriptions: No Action acetaminophen 325 mg Tablet 650 mg PO Q6H PRN (Reason: Pain Rated 1-3 or fever) Qty: 30 0RF aspirin 325 mg Tablet,Delayed Release (Dr/Ec) 325 mg PO QAM Qty: 30 0RF polyethylene glycol 3350 [Miralax] 17 gram Powder In Packet 17 g PO QAM Qty: 14 1RF hydrocodone-acetaminophen 5-325 mg Tablet 1 tablet PO Q3H PRN (Reason: pain) Qty: 30 0RF diazepam 5 mg Tablet 5 mg PO Q8H PRN (Reason: Muscle Spasm) Qty: 20 1RF ibuprofen 800 mg tablet 800 mg PO TID PRN (Reason: pain) Qty: 30 1RF sennosides-docusate sodium [Senna with Docusate Sodium] 8.6-50 mg tablet 1 tab-cap PO BID PRN (Reason: constipation) Qty: 20 1RF Follow-up/Referrals: Papi Apple MD [Physician, Family Practice] Kate Narayanan MD [Physician, Cardiology]
[2025-03-29 09:12] LABS: BEDSIDEPREGUCG Negative (Negative)
[2025-03-29 09:39] LABS: Troponin I < 0.012 ng/mL (0.000-0.034)
== END 2025-03-29 09:58 | disposition home or self-care (01) ==
PROVIDERS: Student in an Organized Health Care Education/Training Program; Emergency Provider Emergency Medicine
DX: R07.9 Chest pain, unspecified (principal); R06.02 Shortness of breath
CPT/HCPCS: 36415; 71046; 71275; 80053; 81025; 83690; 84484; 85025; 85380; 85610; 85730; 93005; 99284; A9270; Q9967